=== PATIENT | male | born 1990 | race Caucasian/White ===

== ENCOUNTER 2022-07-30 15:49 | Emergency (ER) | payer OTHER, MEDICAID, SELFPAY ==
[2022-07-30 15:59] VITALS: BP 150/98; PULSE 88; RESP 16; TEMP 36.9; O2SAT 100; BMI 27.3
--- NOTE | 2022-07-30 16:03 | XR_ITS ---
PROCEDURE INFORMATION: Exam: XR Left Knee Exam date and time: 07/30/2022 4:04 PM Age: 32 years old Clinical indication: Injury or trauma; Other: Hit by fire hose; Work related; Blunt trauma; Left; Injury date: 07/30/22; Injury details: PT was hit by a fire hose; Patient HX: Trauma, lt lat and post knee pain; Additional info: Hit in knee TECHNIQUE: Imaging protocol: Radiologic exam of the Left knee. Views: 3 views. COMPARISON: No relevant prior studies available. FINDINGS: Bones/joints: No acute fracture or dislocation. The knee compartments are preserved. Normal bone mineralization. Soft tissues: No soft tissue swelling or effusion. IMPRESSION: No acute findings.
--- NOTE | 2022-07-30 17:03 | EXP.UTC ---
Discharge Plan Disposition Patient Disposition: Home, Self-Care Condition: Good Prescriptions Prescriptions: New ibuprofen [IBU] 800 mg tablet 800 mg PO Q8HP PRN (Reason: Moderate Pain) Qty: 30 0RF Referrals Follow up/Referrals: Ej Lima JR, MD [Physician] - See instructions Bruna Jacinto [Primary Care Provider] - See instructions Activity Restrictions/Add. Instructions Additional Instructions/Restrictions: Rest the extremity, apply ice for 15 minutes as tolerated three or four times per day, Wear the slim wrap for compression, Elevate the extremity as tolerated while you are resting. Take ibuprofen for pain. I sent in a prescription to your pharmacy. Follow up with Dr. Lima (orthopedics). I put in a referral but you need to call his office and schedule an appointment. Follow up with your regular doctor. GO TO THE ER FOR ANY WORSENING SYMPTOMS Clinical Impressions Clinical Impression: Contusion of left knee, Contusion of left leg, Crushing injury of left leg Stand Alone Forms Stand Alone Forms: Work/School Release Instructions Patient Instructions: How to Use Crutches, Knee Sprain, DI for Knee Sprain Discharge ED Provider: Nando Neal [facility] General Stated complaint: ao 07/30, left knee pain Mode of Arrival: Ambulatory Source of Information: Patient Limitations: No Limitations Time Seen by Provider: 07/30/22 17:03 Description of Symptoms (Recalled from Triage Doc. by RN): pt advises he was doing training this am with hoses when it jumped up and hit him in the left knee. PT advises he has had pain since the incident and it has give out on him. 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 This happened about 30 minutes lpta. He has had left knee pain that is worse with walking and bearing weight since this happened. He denies any other injury. Related Data Previous Rx's Medication Instructions Recorded ibuprofen 800 mg tablet (IBU) 800 mg PO Q8HP PRN Moderate Pain 07/30/22 #30 tabs Allergies Allergy/AdvReac Type Severity Reaction Status Date / Time No Known Allergies Allergy Verified 07/30/22 17:23 Worker's Comp Is this a Worker's Comp case?: No PFSH PFSH Social History Smoking Status: Never smoker alcohol intake: never current occupational status: employed Travel in the last 8 weeks: None ROS Obtained: Yes All systems reviewed & no additional complaints except as documented Constitutional Constitutional: Denies chills and Denies fever(s) Integumentary/Breasts Skin/Breast: Denies redness, Denies rash and Denies wounds Neurologic Neurologic: Denies paresthesias Physical Exam General General appearance: alert and in no apparent distress Head Head exam: atraumatic, normocephalic and normal inspection Eye Eye exam: Present normal appearance, PERRL and EOMI ENT ENT exam: Present normal exam, normal oropharynx, mucous membranes moist, TM's normal bilaterally and normal external ear exam Neck Neck exam: Present normal inspection, full ROM and trachea midline; Absent meningismus or lymphadenopathy Chest Chest inspection: Present normal inspection and symmetric chest wall rise; Absent tenderness Respiratory Respiratory exam: Present normal lung sounds bilaterally; Absent respiratory distress Cardiovascular Cardiovascular exam: Present regular rate and normal rhythm; Absent JVD Abdominal Exam Abdominal exam: Present soft and normal bowel sounds; Absent distention, tenderness or guarding Extremities Exam Extremities exam: Present normal
[2022-07-30 17:21] VITALS: BP 150/98; PULSE 88; RESP 16; TEMP 36.9; O2SAT 100; BMI 27.3
[2022-07-30 18:07] VITALS: BP 150/98; PULSE 88; RESP 16; TEMP 36.9
== END 2022-07-30 18:07 | disposition home or self-care (01) ==
PROVIDERS: Emergency Provider Nurse Practitioner Family; PCP Family Medicine
DX: S80.02XA Contusion of left knee, initial encounter (principal); S80.12XA Contusion of left lower leg, initial encounter; S87.82XA Crushing injury of left lower leg, initial encounter; W20.8XXA Other cause of strike by thrown, projected or falling object, initial encounter; Y93.89 Activity, other specified; Y99.0 Civilian activity done for income or pay
CPT/HCPCS: 73562; 99213; G0463